=== PATIENT | female | born 1955 | race Caucasian/White ===

== ENCOUNTER 2018-05-17 18:01 | Emergency (ER) | payer OTHER ==
[2018-05-17] MEDS: BENOXINATE/FLUORESCEIN DROPS LEFT EYE ×2 (20:44→20:45)
[2018-05-17] MEDS: FLUORESCEIN STRIP LEFT EYE ×2 (20:44→20:45)
== END 2018-05-17 20:56 | disposition home or self-care (01) ==
LOC: FTE 18:01
DX: H57.12 Ocular pain, left eye (principal); E11.9 Type 2 diabetes mellitus without complications
CPT/HCPCS: 99283; Z7502